=== PATIENT | male | born 1980 | race Two or more races ===

== ENCOUNTER 2018-02-17 16:56 | Inpatient (IN) | payer MEDICAID ==
[~2018-02-17] VITALS: Ht 172.7 cm; Wt 86.2 kg
[2018-02-17 16:59] VITALS: BP 132/86
[2018-02-17] MEDS ORDERED: NS IVPB ONE (17:45)
[2018-02-17] MEDS ORDERED: Isovue-300 100ml vial INJ PRN (17:45)
[2018-02-17] MEDS ORDERED: VANCOMYCIN IVPB ONE (17:45)
--- NOTE | 2018-02-17 17:49 | Emergency Room Report ---
History of Present Illness General Chief Complaint: Skin Rash/Abscess Present Illness HPI 37-year-old male patient presents the ER complaining of infected sebaceous cyst on the back of his neck. Patient states that he was at his primary care clinic earlier today and they sent him in here to be further evaluated and treated. Reports abscess has been on the back of his neck for the past 15 days, denies fever, chest pain, shortness of breath, vomiting. Reports up-to-date on vaccinations. Denies IV drug use. Reports has been draining at home. Reports has not taken any medication or antibiotics for relief of symptoms. Denies history of diabetes. Allergies: Coded Allergies: No Known Allergies (Unverified , 02/17/18) Patient History Past Medical History: see triage record Reviewed Nursing Documentation: PMH: Agreed; PSxH: Agreed Nursing Documentation-PMH Past Medical History: No History, Except For Review of Systems All Other Systems: negative except mentioned in HPI Physical Exam Vital Signs Date Time Temp Pulse Resp B/P (MAP) Pulse Ox O2 Delivery O2 Flow Rate FiO2 02/17/18 16:59 98.1 100 20 132/86 98 Room Air Sp02 EP Interpretation: reviewed, normal General Appearance: well appearing, no apparent distress, alert, GCS 15, non- toxic Head: normocephalic, atraumatic Eyes: bilateral eye normal inspection, bilateral eye PERRL ENT: hearing grossly normal, normal pharynx, no angioedema, normal voice, uvula midline, moist mucus membranes Neck: full range of motion Respiratory: lungs clear, normal breath sounds, no rhonchi, no respiratory distress, no accessory muscle use, no wheezing, speaking full sentences Cardiovascular #1: regular rate, rhythm, no edema Musculoskeletal: back normal, digits/nails normal, gait/station normal, normal range of motion, non-tender Neurologic: alert, oriented x3, responsive, motor strength/tone normal, sensory intact Psychiatric: mood/affect normal Skin: other - Posterior neck: Multilobulated indurated abscess noted, open and draining into different sites, erythematous, no surrounding erythema or edema Medical Decision Making PA Attestation Dr. Shelby is my supervising Physician whom patient management has been discussed with. Diagnostic Impression: Primary Impression: Cellulitis ER Course Pt. presents to the ED c/o infected "sebaceous cyst on the back of neck." Ddx considered but are not limited to rash, cellulitis, abscess, sebaceous cyst , carbuncle, folliculitis. Does not require imaging at this time. Vital signs: are WNL, pt. is afebrile ER COURSE: Spoke with patient's physician Dr. iDna Mendoza the phone regarding patient , discussed need for further imaging to evaluate depth of infection. Large possibly multilobulated abscess on the back of the patient's neck, indurated, currently with 2 sites open where likely drained , no active draining occurring, will order CT neck with contrast to evaluate further for depth. Discussed patient care with Dr. Shelby, will order 2 g of vancomycin to cover for infection. CBC shows WBC elevated above 18 CMP unremarkable normal kidney function CT neck with contrast shows inflammatory changes in the occipital region posterior neck without evidence of well-defined fluid collection. Patient to be admitted for cellulitis with elevated WBC. Consult with general surgeon Dr. Irby who was nice enough to consult on this case. Informed Dr. Shelby of patient, patient to be admitted to Dr. Burnett for cellulitis. - Please note that this Emergency Department Report was dictated using [employer] associate technology software, occasionally this can lead to erroneous entry secondary to interpretation by the dictation equipment. CT/MRI/US Diagnostic Results CT/MRI/US Diagnostic Results : Imaging Test Ordered: CT neck with contrast Impression IMPRESSION: Inflammatory changes in the suboccipital region posterior neck without evidence of well-defined fluid collection. Last Vital Signs Date Time Temp Pulse Resp B/P (MAP) Pulse Ox O2 Delivery O2 Flow Rate FiO2 02/17/18 16:59 98.1 20 132/86 98 Room Air 02/17/18 16:59 100 Disposition: ADMITTED INPATIENT Condition: Serious Dipak Lucas Feb 17, 2018 17:49
[2018-02-17 18:25] LABS: MEAN CORPUSCULAR VOLUME 85 FL (80-99); PLATELET COUNT 340 K/UL (150-450); RED BLOOD COUNT 5.15 M/UL (4.70-6.10); RED CELL DISTRIBUTION WIDTH 11.3 % (11.6-14.8); WHITE BLOOD COUNT 18.7 K/UL (4.8-10.8)
[2018-02-17 18:34] LABS: ANION GAP 11 mmol/L (5-15); BLOOD UREA NITROGEN 14 mg/dL (7-18); CALCIUM 9.7 MG/DL (8.5-10.1); CARBON DIOXIDE 24 MMOL/L (21-32); CHLORIDE 102 MMOL/L (98-107); CREATININE 0.9 MG/DL (0.55-1.30); POTASSIUM 3.9 MMOL/L (3.5-5.1); SODIUM 137 MMOL/L (136-145)
[2018-02-17 18:39] LABS: ALANINE AMINOTRANSFERASE 26 U/L (12-78); ALBUMIN 3.7 G/DL (3.4-5.0); ALBUMIN/GLOBULIN RATIO 0.8 (1.0-2.7); ALKALINE PHOSPHATASE 121 U/L (46-116); ASPARTATE AMINO TRANSFERASE 17 U/L (15-37); BILIRUBIN,TOTAL 0.2 MG/DL (0.2-1.0)
[2018-02-17 22:15] VITALS: BP 128/84
[2018-02-18] VITALS: BP 117/80
[2018-02-18] MEDS: Cefepime HCl 1 GM in D5W 55 ML IVPB SCH ×3 (00:50→21:00)
[2018-02-18] MEDS: Vancomycin 750mg/NS 250ml IVPB SCH ×3 (02:55→18:39)
[2018-02-18 04:00] VITALS: BP 120/78
[2018-02-18 07:03] LABS: BASOPHILS % (AUTO) 0.6 % (0.0-2.0); EOSINOPHILS % (AUTO) 0.9 % (0.0-3.0); HEMATOCRIT 42.9 % (42.0-52.0); HEMOGLOBIN 14.7 G/DL (14.2-18.0); LYMPHOCYTES % (AUTO) 17.3 % (20.0-45.0); MEAN CORPUSCULAR VOLUME 85 FL (80-99); MONOCYTES % (AUTO) 4.7 % (1.0-10.0); NEUTROPHILS % (AUTO) 76.5 % (45.0-75.0); PLATELET COUNT 324 K/UL (150-450); RED BLOOD COUNT 5.04 M/UL (4.70-6.10); RED CELL DISTRIBUTION WIDTH 11.2 % (11.6-14.8); WHITE BLOOD COUNT 15.7 K/UL (4.8-10.8)
[2018-02-18 07:46] LABS: ALANINE AMINOTRANSFERASE 26 U/L (12-78); ALBUMIN 3.2 G/DL (3.4-5.0); ALBUMIN/GLOBULIN RATIO 0.7 (1.0-2.7); ALKALINE PHOSPHATASE 106 U/L (46-116); ANION GAP 9 mmol/L (5-15); ASPARTATE AMINO TRANSFERASE 13 U/L (15-37); BILIRUBIN,TOTAL 0.4 MG/DL (0.2-1.0); BLOOD UREA NITROGEN 9 mg/dL (7-18); CALCIUM 8.9 MG/DL (8.5-10.1); CARBON DIOXIDE 26 MMOL/L (21-32); CHLORIDE 103 MMOL/L (98-107); CREATININE 0.9 MG/DL (0.55-1.30); SODIUM 138 MMOL/L (136-145)
[2018-02-18 08:00] VITALS: BP 123/81
--- NOTE | 2018-02-18 09:28 | Diagnostic Imaging Report ---
Indication: Infected sebaceous cyst on back of neck Technique: IV administration nonionic contrast. Spiral acquisitions obtained through the neck. Multiplanar reconstructions were generated. Total dose length product 475.57 mGycm. CTDIvol(s) 18.36 mGy. Dose reduction achieved using automated exposure control Comparison: none Findings: Motion artifact somewhat degrades images. There is thickening of the skin and infiltration of the subcutaneous fat in the midline of the mid to upper posterior neck region. There is a small skin defect to the right of midline. No focal rim-enhancing fluid collections to suggest abscess are evident. The nasopharynx, oropharynx, hypopharynx, larynx, trachea are all unremarkable. The thyroid is unremarkable. No cervical mass or adenopathy. The salivary glands are unremarkable. The included lung apices are clear. The sinuses are clear. The dentition is intact. The bones are unremarkable. Impression: Thickening of the skin and subcutaneous fat of the upper neck midline. Most likely cellulitis, given stated clinical history. No well-defined fluid collection to suggest abscess No other acute or significant abnormality This agrees with the preliminary interpretation provided overnight by [facility] teleradiology service. The CT scanner at [facility] is accredited by the [employer] and the scans are performed using protocols designed to limit radiation exposure to as low as reasonably achievable to attain images of sufficient resolution adequate for diagnostic evaluation.
[2018-02-18] MEDS: Heparin 5000 units/ml inj SUBQ SCH ×2 (10:21→20:59)
[2018-02-18 12:00] VITALS: BP 127/65
--- NOTE | 2018-02-18 12:32 | Consultation ---
History of Present Illness General Date patient seen: Feb 17, 2018 Chief Complaint: Skin Rash/Abscess Reason for Consultation: neck abscess Present Illness HPI 37 year old otherwise healthy male presented to ED with complaints of worsening neck pain. States that two weeks ago had a small pimple which as since progressed. now is too uncomfortable and came to ED for evaluation. noted some purulent drainage. states became much larger over past few days. surgery called to evaluate given size and location. patient initially seen in ED and given findings and recommendations was admitted for IV abx. this note is a late entry for visit in ED last night with anticipation of admission Allergies: Coded Allergies: No Known Allergies (Unverified , 02/17/18) Patient History History Provided By: Patient, Medical Record, PMD Healthcare decision maker Resuscitation status Full Code Advanced Directive on File Past Medical/Surgical History Past Medical/Surgical History: (1) Cellulitis Review of Systems All Other Systems: negative except mentioned in HPI Physical Exam General Appearance: no apparent distress Lines, tubes and drains: peripheral HEENT: mucous membranes moist Neck: other - large 5cm x 4cm indurated cellulitis in posterior neck with purulent drainage midline from opening. abrasion noted right lateral. tender, warm. no fluctuance. Respiratory/Chest: normal breath sounds, no respiratory distress Cardiovascular/Chest: normal rate, regular rhythm Abdomen: soft, no organomegaly, no mass Extremities: normal inspection, no calf tenderness Skin Exam: warm/dry Neurologic: alert, oriented x 3 Last 24 Hour Vital Signs Date Time Temp Pulse Resp B/P (MAP) Pulse Ox O2 Delivery O2 Flow Rate FiO2 02/18/18 12:00 98.2 75 21 127/65 (85) 99 02/18/18 09:00 Room Air 02/18/18 08:00 97.5 87 20 123/81 (95) 100 02/18/18 04:00 98.1 78 17 120/78 (92) 100 02/18/18 00:00 98.2 91 18 117/80 (92) 99 02/17/18 22:51 Room Air 02/17/18 22:15 98.3 74 18 128/84 98 Room Air 02/17/18 22:15 98.3 74 18 128/84 98 Room Air 02/17/18 16:59 98.1 20 132/86 98 Room Air 02/17/18 16:59 98.1 100 20 132/86 98 Room Air Intake and Output 02/17/18 02/18/18 19:00 07:00 Intake Total 0 ml 640 ml Balance 0 ml 640 ml Intake Oral 0 ml 240 ml IV Total 400 ml # Voids 2 Laboratory Tests Test 02/17/18 17:46 02/18/18 05:55 White Blood Count 18.7 K/UL (4.8-10.8) H 15.7 K/UL (4.8-10.8) H Red Blood Count 5.15 M/UL (4.70-6.10) 5.04 M/UL (4.70-6.10) Hemoglobin 15.0 G/DL (14.2-18.0) 14.7 G/DL (14.2-18.0) Hematocrit 44.0 % (42.0-52.0) 42.9 % (42.0-52.0) Mean Corpuscular Volume 85 FL (80-99) 85 FL (80-99) Mean Corpuscular Hemoglobin 29.2 PG (27.0-31.0) 29.2 PG (27.0-31.0) Mean Corpuscular Hemoglobin Concent 34.2 G/DL (32.0-36.0) 34.3 G/DL (32.0-36.0) Red Cell Distribution Width 11.3 % (11.6-14.8) L 11.2 % (11.6-14.8) L Platelet Count 340 K/UL (150-450) 324 K/UL (150-450) Mean Platelet Volume 7.2 FL (6.5-10.1) 6.9 FL (6.5-10.1) Neutrophils (%) (Auto) % (45.0-75.0) 76.5 % (45.0-75.0) H Lymphocytes (%) (Auto) % (20.0-45.0) 17.3 % (20.0-45.0) L Monocytes (%) (Auto) % (1.0-10.0) 4.7 % (1.0-10.0) Eosinophils (%) (Auto) % (0.0-3.0) 0.9 % (0.0-3.0) Basophils (%) (Auto) % (0.0-2.0) 0.6 % (0.0-2.0) Differential Total Cells Counted 100 Neutrophils % (Manual) 73 % (45-75) Lymphocytes % (Manual) 25 % (20-45) Monocytes % (Manual) 1 % (1-10) Eosinophils % (Manual) 1 % (0-3) Basophils % (Manual) 0 % (0-2) Band Neutrophils 0 % (0-8) Platelet Estimate Adequate Platelet Morphology Normal Red Blood Cell Morphology Normal Sodium Level 137 MMOL/L (136-145) 138 MMOL/L (136-145) Potassium Level 3.9 MMOL/L (3.5-5.1) 4.0 MMOL/L (3.5-5.1) Chloride Level 102 MMOL/L (98-107) 103 MMOL/L (98-107) Carbon Dioxide Level 24 MMOL/L (21-32) 26 MMOL/L (21-32) Anion Gap 11 mmol/L (5-15) 9 mmol/L (5-15) Blood Urea Nitrogen 14 mg/dL (7-18) 9 mg/dL (7-18) Creatinine 0.9 MG/DL (0.55-1.30) 0.9 MG/DL (0.55-1.30) Estimat Glomerular Filtration Rate > 60 mL/min (>60) > 60 mL/min (>60) Glucose Level 96 MG/DL (74-106) 95 MG/DL (74-106) Calcium Level 9.7 MG/DL (8.5-10.1) 8.9 MG/DL (8.5-10.1) Total Bilirubin 0.2 MG/DL (0.2-1.0) 0.4 MG/DL (0.2-1.0) Aspartate Amino Transf (AST/SGOT) 17 U/L (15-37) 13 U/L (15-37) L Alanine Aminotransferase (ALT/SGPT) 26 U/L (12-78) 26 U/L (12-78) Alkaline Phosphatase 121 U/L (46-116) H 106 U/L (46-116) Total Protein 8.6 G/DL (6.4-8.2) H 7.7 G/DL (6.4-8.2) Albumin 3.7 G/DL (3.4-5.0) 3.2 G/DL (3.4-5.0) L Globulin 4.9 g/dL 4.5 g/dL Albumin/Globulin Ratio 0.8 (1.0-2.7) L 0.7 (1.0-2.7) L Hemoglobin A1c 5.5 % (4.3-6.0) Thyroid Stimulating Hormone (TSH) 1.401 uiU/mL (0.358-3.740) Height (Feet): 5 Height (Inches): 8.00 Weight (Pounds): 190 Medications Current Medications Medications (Trade) Dose Ordered Sig/Odalis Route PRN Reason Start Time Stop Time Status Last Admin Dose Admin Cefepime HCl 1 gm/ Dextrose 55 ml @ 110 mls/hr EVERY 12 HOURS IVPB 02/17/18 23:45 02/24/18 23:44 02/18/18 10:18 Heparin Sodium (Porcine) (Heparin 5000 units/ml) 5,000 units EVERY 12 HOURS SUBQ 02/18/18 09:00 03/20/18 08:59 02/18/18 10:21 Iopamidol (Isovue-300 100ml) 100 ml NOW PRN INJ Radiology Procedure 02/17/18 17:45 02/19/18 17:33 Sodium Chloride 1,000 ml @ 100 mls/hr Q10H IV 02/17/18 23:45 03/19/18 23:44 02/18/18 10:19 Vancomycin HCl (Vanco rx to dose) 1 ea DAILY PRN MISC Per rx protocol 02/17/18 23:45 03/19/18 23:44 Vancomycin/Sodium Chloride 250 ml @ 166.667 mls/hr Q8H IVPB 02/18/18 02:00 02/23/18 01:59 02/18/18 10:48 Assessment/Plan Problem List: (1) Cellulitis Assessment & Plan: 37M posterior neck cellulitis / resolving abscess mainly only cellulitis with induration now. only minimal drainage with deep palpation CT reviewed and no drainable abscess noted. admitted for IV abx and care thank you for this consultation. will follow with recs. ICD Codes: L03.90 - Cellulitis, unspecified SNOMED: [id number] Qualifiers: Qualified Codes: L03.221 - Cellulitis of neck Status: stable Benyamini,Nemesio Feb 18, 2018 12:32
--- NOTE | 2018-02-18 12:34 | General Surgery Progress Note ---
General Surgery-Progress Note Subjective Symptoms: improved Additional Comments noted swelling improved. no n/v/f/c. labs improved. still with some drainage Objective Last 24 Hour Vital Signs Date Time Temp Pulse Resp B/P (MAP) Pulse Ox O2 Delivery O2 Flow Rate FiO2 02/18/18 12:00 98.2 75 21 127/65 (85) 99 02/18/18 09:00 Room Air 02/18/18 08:00 97.5 87 20 123/81 (95) 100 02/18/18 04:00 98.1 78 17 120/78 (92) 100 02/18/18 00:00 98.2 91 18 117/80 (92) 99 02/17/18 22:51 Room Air 02/17/18 22:15 98.3 74 18 128/84 98 Room Air 02/17/18 22:15 98.3 74 18 128/84 98 Room Air 02/17/18 16:59 98.1 20 132/86 98 Room Air 02/17/18 16:59 98.1 100 20 132/86 98 Room Air I&O Intake and Output 02/17/18 02/18/18 19:00 07:00 Intake Total 0 ml 640 ml Balance 0 ml 640 ml Intake Oral 0 ml 240 ml IV Total 400 ml # Voids 2 Dressing: saturated Wound: other Drains: none Cardiovascular: RSR Respiratory: clear Abdomen: soft, flat, non-tender, present bowel sounds Extremities: no edema, no tenderness, no cyanosis Laboratory Tests Test 02/17/18 17:46 02/18/18 05:55 White Blood Count 18.7 K/UL (4.8-10.8) H 15.7 K/UL (4.8-10.8) H Red Blood Count 5.15 M/UL (4.70-6.10) 5.04 M/UL (4.70-6.10) Hemoglobin 15.0 G/DL (14.2-18.0) 14.7 G/DL (14.2-18.0) Hematocrit 44.0 % (42.0-52.0) 42.9 % (42.0-52.0) Mean Corpuscular Volume 85 FL (80-99) 85 FL (80-99) Mean Corpuscular Hemoglobin 29.2 PG (27.0-31.0) 29.2 PG (27.0-31.0) Mean Corpuscular Hemoglobin Concent 34.2 G/DL (32.0-36.0) 34.3 G/DL (32.0-36.0) Red Cell Distribution Width 11.3 % (11.6-14.8) L 11.2 % (11.6-14.8) L Platelet Count 340 K/UL (150-450) 324 K/UL (150-450) Mean Platelet Volume 7.2 FL (6.5-10.1) 6.9 FL (6.5-10.1) Neutrophils (%) (Auto) % (45.0-75.0) 76.5 % (45.0-75.0) H Lymphocytes (%) (Auto) % (20.0-45.0) 17.3 % (20.0-45.0) L Monocytes (%) (Auto) % (1.0-10.0) 4.7 % (1.0-10.0) Eosinophils (%) (Auto) % (0.0-3.0) 0.9 % (0.0-3.0) Basophils (%) (Auto) % (0.0-2.0) 0.6 % (0.0-2.0) Differential Total Cells Counted 100 Neutrophils % (Manual) 73 % (45-75) Lymphocytes % (Manual) 25 % (20-45) Monocytes % (Manual) 1 % (1-10) Eosinophils % (Manual) 1 % (0-3) Basophils % (Manual) 0 % (0-2) Band Neutrophils 0 % (0-8) Platelet Estimate Adequate Platelet Morphology Normal Red Blood Cell Morphology Normal Sodium Level 137 MMOL/L (136-145) 138 MMOL/L (136-145) Potassium Level 3.9 MMOL/L (3.5-5.1) 4.0 MMOL/L (3.5-5.1) Chloride Level 102 MMOL/L (98-107) 103 MMOL/L (98-107) Carbon Dioxide Level 24 MMOL/L (21-32) 26 MMOL/L (21-32) Anion Gap 11 mmol/L (5-15) 9 mmol/L (5-15) Blood Urea Nitrogen 14 mg/dL (7-18) 9 mg/dL (7-18) Creatinine 0.9 MG/DL (0.55-1.30) 0.9 MG/DL (0.55-1.30) Estimat Glomerular Filtration Rate > 60 mL/min (>60) > 60 mL/min (>60) Glucose Level 96 MG/DL (74-106) 95 MG/DL (74-106) Calcium Level 9.7 MG/DL (8.5-10.1) 8.9 MG/DL (8.5-10.1) Total Bilirubin 0.2 MG/DL (0.2-1.0) 0.4 MG/DL (0.2-1.0) Aspartate Amino Transf (AST/SGOT) 17 U/L (15-37) 13 U/L (15-37) L Alanine Aminotransferase (ALT/SGPT) 26 U/L (12-78) 26 U/L (12-78) Alkaline Phosphatase 121 U/L (46-116) H 106 U/L (46-116) Total Protein 8.6 G/DL (6.4-8.2) H 7.7 G/DL (6.4-8.2) Albumin 3.7 G/DL (3.4-5.0) 3.2 G/DL (3.4-5.0) L Globulin 4.9 g/dL 4.5 g/dL Albumin/Globulin Ratio 0.8 (1.0-2.7) L 0.7 (1.0-2.7) L Hemoglobin A1c 5.5 % (4.3-6.0) Thyroid Stimulating Hormone (TSH) 1.401 uiU/mL (0.358-3.740) Plan Problems: (1) Cellulitis Assessment & Plan: 37M posterior neck cellulitis / resolving abscess mainly only cellulitis with induration now. only minimal drainage with deep palpation CT reviewed and no drainable abscess noted. admitted for IV abx and care wound improved today. opening in apex of induration / cellulitis with minimal drainage. leukocytosis trending down okay for diet spontaneously drainage from good area. no need further I&D at this time based on clinical and radiological imaging cont IV Abx once leukocytosis resolved will plan to d/c on oral abx for duration of course will monitor wound for I&D if phlegmon develops into abscess thank you for this consultation. will follow with recs. Nemesio Irby Feb 18, 2018 12:34
[2018-02-18] MEDS ORDERED: Norco 5mg/325mg tab ORAL PRN (12:45)
[2018-02-18 16:00] VITALS: BP 132/87
[2018-02-18 20:10] VITALS: BP 122/72
[2018-02-19 00:08] VITALS: BP 125/68
[2018-02-19] MEDS: Vancomycin 750mg/NS 250ml IVPB SCH ×4 (02:02→17:27)
--- NOTE | 2018-02-19 02:15 | History and Physical Report ---
DATE OF ADMISSION: 02/17/2018 REASON FOR ADMISSION: Cellulitis of neck with possible abscess. HISTORY OF PRESENT ILLNESS: This is a 37-year-old male. He has a sebaceous cyst on the back of his neck that has been irritating him and growing in size. He was seen by his primary care physician and referred to the hospital for possible drainage procedure. He notes that the lump on his neck has been there for approximately two weeks. The patient has no history of diabetes or IV drug use. He has not been on any antibiotics. ALLERGIES: None. PAST MEDICAL HISTORY: Otherwise unremarkable. MEDICATIONS: None. SOCIAL HISTORY: No alcohol or substance abuse. No smoking. REVIEW OF SYSTEMS: Otherwise unremarkable. PHYSICAL EXAMINATION: VITAL SIGNS: Afebrile, blood pressure 132/86, pulse 100, and respiratory rate 20. HEENT: Conjunctivae pink. Oropharynx clear. NECK: Supple. LUNGS: Clear. CARDIAC: Regular. Normal S1 and S2. No murmur. ABDOMEN: Soft and nontender. EXTREMITIES: No edema. SKIN: Reveals posterior neck with indurated abscess versus phlegmon, multilobulated, open and draining with erythema and edema surrounding. LABORATORY DATA: Labs noted. IMPRESSION: 1. Cellulitis of neck with draining phlegmon versus abscess, rule out deeper infection. 2. Leukocytosis noted. PLAN: 1. IV antibiotics following cultures. 2. Surgical evaluation for drainage. 3. CT scan to assess for deeper tissue collection. Gokul Boyd M.D. DR: KASSIE JOB#: [id number] CC:
[2018-02-19 03:54] VITALS: BP 122/79
[2018-02-19 05:23] LABS: BASOPHILS % (AUTO) 0.8 % (0.0-2.0); EOSINOPHILS % (AUTO) 1.3 % (0.0-3.0); HEMATOCRIT 43.8 % (42.0-52.0); HEMOGLOBIN 14.4 G/DL (14.2-18.0); LYMPHOCYTES % (AUTO) 25.1 % (20.0-45.0); MEAN CORPUSCULAR VOLUME 89 FL (80-99); MONOCYTES % (AUTO) 4.5 % (1.0-10.0); NEUTROPHILS % (AUTO) 68.3 % (45.0-75.0); PLATELET COUNT 329 K/UL (150-450); RED CELL DISTRIBUTION WIDTH 11.4 % (11.6-14.8); WHITE BLOOD COUNT 14.7 K/UL (4.8-10.8)
[2018-02-19 05:36] LABS: ANION GAP 7 mmol/L (5-15); BLOOD UREA NITROGEN 10 mg/dL (7-18); CARBON DIOXIDE 26 MMOL/L (21-32); CHLORIDE 104 MMOL/L (98-107); POTASSIUM 4.2 MMOL/L (3.5-5.1); SODIUM 137 MMOL/L (136-145)
[2018-02-19 08:00] VITALS: BP 127/73
[2018-02-19] MEDS: Cefepime HCl 1 GM in D5W 55 ML IVPB SCH ×2 (08:31→20:43)
[2018-02-19] MEDS: Heparin 5000 units/ml inj SUBQ SCH ×2 (08:31→20:41)
[2018-02-19 12:00] VITALS: BP 112/73
[2018-02-19 16:00] VITALS: BP 123/68
[2018-02-19 19:52] VITALS: BP 121/81
--- NOTE | 2018-02-19 22:42 | General Surgery Progress Note ---
General Surgery-Progress Note Subjective Symptoms: improved, tolerating diet, passing flatus Additional Comments wound with less cellulitis today. still draining Objective Last 24 Hour Vital Signs Date Time Temp Pulse Resp B/P (MAP) Pulse Ox O2 Delivery O2 Flow Rate FiO2 02/19/18 19:52 98.4 68 17 121/81 (94) 98 02/19/18 16:00 98.4 85 20 123/68 (86) 99 02/19/18 12:00 98.2 71 20 112/73 (86) 98 02/19/18 09:00 Room Air 02/19/18 08:00 98.6 85 20 127/73 (91) 99 02/19/18 03:54 98.6 82 17 122/79 (93) 97 02/19/18 00:08 98.9 80 18 125/68 (87) 98 I&O Intake and Output 02/18/18 02/19/18 18:59 06:59 Intake Total 2040 ml 1318.334 ml Balance 2040 ml 1318.334 ml Intake Oral 740 ml 480 ml IV Total 1300 ml 838.334 ml # Voids 4 4 Dressing: saturated Wound: clean, other Drains: none Cardiovascular: RSR Respiratory: clear Abdomen: soft, flat, non-tender, present bowel sounds Extremities: no edema, no tenderness, no cyanosis Laboratory Tests Test 02/19/18 04:44 White Blood Count 14.7 K/UL (4.8-10.8) H Red Blood Count 4.90 M/UL (4.70-6.10) Hemoglobin 14.4 G/DL (14.2-18.0) Hematocrit 43.8 % (42.0-52.0) Mean Corpuscular Volume 89 FL (80-99) Mean Corpuscular Hemoglobin 29.4 PG (27.0-31.0) Mean Corpuscular Hemoglobin Concent 32.9 G/DL (32.0-36.0) Red Cell Distribution Width 11.4 % (11.6-14.8) L Platelet Count 329 K/UL (150-450) Mean Platelet Volume 6.8 FL (6.5-10.1) Neutrophils (%) (Auto) 68.3 % (45.0-75.0) Lymphocytes (%) (Auto) 25.1 % (20.0-45.0) Monocytes (%) (Auto) 4.5 % (1.0-10.0) Eosinophils (%) (Auto) 1.3 % (0.0-3.0) Basophils (%) (Auto) 0.8 % (0.0-2.0) Sodium Level 137 MMOL/L (136-145) Potassium Level 4.2 MMOL/L (3.5-5.1) Chloride Level 104 MMOL/L (98-107) Carbon Dioxide Level 26 MMOL/L (21-32) Anion Gap 7 mmol/L (5-15) Blood Urea Nitrogen 10 mg/dL (7-18) Creatinine 1.0 MG/DL (0.55-1.30) Estimat Glomerular Filtration Rate > 60 mL/min (>60) Glucose Level 115 MG/DL (74-106) H Calcium Level 9.0 MG/DL (8.5-10.1) Plan Problems: (1) Cellulitis Assessment & Plan: 37M posterior neck cellulitis / resolving abscess mainly only cellulitis with induration now. only minimal drainage with deep palpation CT reviewed and no drainable abscess noted. admitted for IV abx and care wound improved today. opening in apex of induration / cellulitis with minimal drainage. leukocytosis trending down okay for diet spontaneously drainage from good area. no need further I&D at this time based on clinical and radiological imaging cont IV Abx once leukocytosis resolved will plan to d/c on oral abx for duration of course will monitor wound for I&D if phlegmon develops into abscess thank you for this consultation. will follow with recs. Nemesio Irby Feb 19, 2018 22:42
[2018-02-20 00:34] VITALS: BP 125/74
--- NOTE | 2018-02-20 01:45 | Progress Note ---
DATE: 02/19/2018 SUBJECTIVE: The patient is seen with family at bedside. Drainage from the neck is still present, but decreased. OBJECTIVE: VITAL SIGNS: He is afebrile. Blood pressure 127/73, pulse 85, and respiratory rate 20. LUNGS: Clear. CARDIAC: Regular with no murmur. ABDOMEN: Soft. EXTREMITIES: No edema. SKIN: Neck posterior abscess site is open with minimal drainage and decreased erythema. LABORATORY DATA: Notable for white count decreased from admission of 18.7 to 14.7 today with chemistry panel within normal limits. IMPRESSION: 1. Sebaceous cyst with abscess of neck status post spontaneous drainage, cellulitis. 2. Mild protein-calorie malnutrition. 3. Leukocytosis PLAN: 1. Wound care. 2. IV antimicrobials. 3. Monitor white blood count. 4. Oral antibiotics soon. Gokul Boyd M.D. DR: JONY JOB#: [id number] CC:
[2018-02-20] MEDS: Vancomycin 750mg/NS 250ml IVPB SCH (02:50)
[2018-02-20 04:00] VITALS: BP 116/72
[2018-02-20 08:00] VITALS: BP 119/75
[2018-02-20 08:09] LABS: BASOPHILS % (AUTO) 1.3 % (0.0-2.0); HEMATOCRIT 42.6 % (42.0-52.0); HEMOGLOBIN 14.2 G/DL (14.2-18.0); MEAN CORPUSCULAR VOLUME 88 FL (80-99); MONOCYTES % (AUTO) 4.9 % (1.0-10.0); NEUTROPHILS % (AUTO) 59.8 % (45.0-75.0); PLATELET COUNT 335 K/UL (150-450); RED BLOOD COUNT 4.82 M/UL (4.70-6.10); RED CELL DISTRIBUTION WIDTH 11.4 % (11.6-14.8); WHITE BLOOD COUNT 8.4 K/UL (4.8-10.8)
[2018-02-20] MEDS: Cefepime HCl 1 GM in D5W 55 ML IVPB SCH (08:44)
[2018-02-20] MEDS: Heparin 5000 units/ml inj SUBQ SCH (08:46)
[2018-02-20] MEDS ORDERED: Bactrim-DS 1 tab ORAL SCH ×2 (09:00→21:00)
[2018-02-20] MEDS ORDERED: Vancomycin 750mg/NS 250ml 250 ML IVPB SCH (10:00)
[2018-02-20 12:00] VITALS: BP 149/83
[2018-02-20] MEDS ORDERED: Tubing IV Secondary IV ONE (15:36)
--- NOTE | 2018-02-27 06:42 | Discharge Summary ---
Discharge Summary Discharge Summary _ DATE OF ADMISSION: February 17, 2018 DATE OF DISCHARGE: February 20, 2018 DISCHARGED BY: Dr. Boyd CONSULTANTS: Dr. Nemesio Irby BRIEF HOSPITAL COURSE: Patient is a 37-year-old male. He has a sebaceous cyst on the back of his neck that has been irritating him and has been growing in size. He was seen by his primary care physician and was referred to the hospital for possible drainage. He noted that the lump on the neck has been there for approximately 2 weeks. Patient has no history of diabetes or IV drug abuse. He has not been on any antibiotics. On evaluation at the emergency department, he was noted to have a large possibly multiloculated abscess on the back of the neck, and generated, with 2 sites open. Blood work showed leukocytosis, WBC elevated 18. Hemoglobin and hematocrit were stable. CT of the neck showed thickening of skin and subcutaneous fat of the upper neck midline. Most likely cellulitis, no well- defined fluid collection to suggest abscess. He was then admitted for evaluation of cellulitis of the neck with draining phlegmon versus abscess, rule out deep infection. He was started empirically on IV vancomycin and cefepime.. Surgical consultation was obtained. CT results were reviewed. There was no drainable abscess noted. Patient had spontaneous drainage coming from the area. No need for further I&D based on clinical and radiological imaging. He was recommended to continue IV antibiotic. He was given wound care. Antibiotic was transitioned to p.o. Bactrim DS. He was educated on wound care and wound dressings. He was then discharged home. FINAL DIAGNOSES: Sebaceous cyst with abscess of neck, status post spontaneous drainage, cellulitis Mild protein calorie malnutrition Leukocytosis DISPOSITION: Patient was discharged home. DISCHARGE MEDICATIONS: Patient was given prescriptions to continue p.o. antibiotics. DISCHARGE INSTRUCTIONS: Follow-up in a week. I have been assigned to dictate discharge summary on this account, and I was not involved in the patient's management. Frida Avila NP Feb 27, 2018 06:42
== END 2018-02-20 14:00 | disposition home or self-care (01) | DRG 383 ==
LOC: EMR 18:18 → 3E 19:07 → EDBEDREQ 21:02
DX: L02.11 Cutaneous abscess of neck (principal); E44.1 Mild protein-calorie malnutrition; L72.3 Sebaceous cyst; L03.221 Cellulitis of neck
CPT/HCPCS: 36415; 70491; 80048; 80053; 80202; 83036; 84443; 85007; 85025; 96361; 96365; 99285

== ENCOUNTER 2018-04-22 15:03 | Emergency (ER) | payer MEDICAID ==
[~2018-04-22] VITALS: Ht 172.7 cm; Wt 86.2 kg
[2018-04-22 15:23] VITALS: BP 121/86
--- NOTE | 2018-04-22 15:23 | NUR ---
ED Nurse Note: TO ER WITH 9/10 PAIN TO R WRIST S/P MECH FALL ON CONCRETE. PRESENTING WITH SWOLLEN R WRIST.
[2018-04-22] MEDS ORDERED: Norco 5mg/325mg tab ORAL ONE (15:45)
[2018-04-22] MEDS ORDERED: Bupivacaine 0.5% Inj 30 ml vial INJ ONE (15:45)
--- NOTE | 2018-04-22 16:13 | Emergency Room Report ---
History of Present Illness General Chief Complaint: Upper Extremity Injury Source: Patient Present Illness HPI 37-year-old male patient presents the ER complaining of right wrist pain status post fall from skateboard earlier today. Reports that he was skateboarding when he accidentally fell off his skateboard. Patient reports FOOSH injury. Reports he is right-hand dominant. Reports he did not hit his head or lose consciousness. Reports he was not wearing a helmet. Denies pain in other extremities. States is not taking medication for relief of symptoms. Denies other aggravating or relieving factors. Patient arm currently resting in a sling, deformity noted. Allergies: Coded Allergies: No Known Allergies (Unverified , 02/17/18) Patient History Past Medical History: see triage record Reviewed Nursing Documentation: PMH: Agreed; PSxH: Agreed Nursing Documentation-PMH Past Medical History: No Stated History Hx Cardiac Problems: No Hx Cancer: No Hx Gastrointestinal Problems: No Hx Neurological Problems: No Review of Systems All Other Systems: negative except mentioned in HPI Physical Exam Vital Signs Date Time Temp Pulse Resp B/P (MAP) Pulse Ox O2 Delivery O2 Flow Rate FiO2 04/22/18 15:13 99.0 89 19 121/86 98 Room Air Sp02 EP Interpretation: reviewed, normal General Appearance: well appearing, no apparent distress, alert, GCS 15, non- toxic Head: normocephalic, atraumatic Eyes: bilateral eye normal inspection, bilateral eye PERRL ENT: hearing grossly normal, normal pharynx, no angioedema, normal voice, uvula midline, moist mucus membranes Neck: full range of motion Respiratory: lungs clear, normal breath sounds, no rhonchi, no respiratory distress, no accessory muscle use, no wheezing, speaking full sentences Cardiovascular #1: regular rate, rhythm, no edema Cardiovascular #2: 2+ radial (R), 2+ radial (L) Musculoskeletal: back normal, digits/nails normal, gait/station normal, normal range of motion, swelling, other - NVI, cap refill less than 2 seconds, dinner fork deformity, no snuffbox tenderness, tender - Dorsum of right wrist Neurologic: alert, oriented x3, responsive, motor strength/tone normal, sensory intact Psychiatric: mood/affect normal Skin: no rash Medical Decision Making PA Attestation Dr. Sheehan is my supervising Physician whom patient management has been discussed with. Diagnostic Impression: Primary Impression: Distal radius fracture Additional Impression: Fracture of ulnar styloid ER Course Pt. presents to the ED c/o right wrist pain. Ddx considered but are not limited to fracture, sprain, strain, contusion, dislocation. No erythema, no warmth to touch, no fever, nontoxic appearing, low suspicion for septic joint. Soft compartments, no pulselessness, no pallor, no paresthesias, low suspicion for compartment syndrome at this time. Vital signs: are WNL, pt. is afebrile Ordered X-ray and pain medication. ER COURSE Provided with pain medication. An X-ray of the right wrist shows distal radius fracture per the preliminary reading. Discussed patient care with supervising physician Dr. Sheehan, patient seen and evaluated by him, x-ray reviewed by him, fracture unstable, but not benefit from reduction in the ER currently. Will splint and instructed to follow-up with senior quality methods specialist as outpatient, likely requiring surgical correction. VOlar splint was applied to the right wrist and was checked afterwards by me showing good alignment and support with distal neurovascular functioning intact. Patient instructed on RICE method: rest, ice, compression, elevation. Patient instructed on rest, ice and heat. Patient instructed to be NWB. Due to patient lack of insurance, advised to follow-up with [facility]. Provided with contact information for senior quality methods specialist Contact information for orthopedic urgent care provided, follow-up with urgent care if unable to followup with primary care provider and get referral to senior quality methods specialist. Followup with primary care provider. Discuss referral to ortho/pain management/ PT as needed. Discuss further imaging with MRI/CT as needed. ER precautions given. DISCHARGE: At this time pt. is stable for d/c to home. Patient is resting comfortably, in no acute distress, nontoxic appearing, talking without difficulty. Will provide printed patient care instructions, and any necessary prescriptions. Patient instructed to follow with primary care provider in 3 - 5 days and to request further follow-up as needed. Care plan and follow up instructions have been discussed with the patient prior to discharge. Take medications as directed. Patient questions asked and answered. Patient reports understanding and agreement to treatment plan. ER precautions given, patient instructed to return to ER immediately for any new or worsening of symptoms. - Please note that this Emergency Department Report was dictated using [employer] technology software, occasionally this can lead to erroneous entry secondary to interpretation by the dictation equipment. Other X-Ray Diagnostic Results Other X-Ray Diagnostic Results : X-Ray ordered: Right wrist # of Views/Limited Vs Complete: 3 View Indication: Pain EP Interpretation: Yes PA Xray: Interpretation reviewed, by supervising MD, and agrees with findings. Interpretation: no dislocation, no soft tissue swelling, other - Comminuted distal radius fracture and ulnar styloid fracture Impression: Other - Fracture PA Scribe Text Eros Lucas PA-C Last Vital Signs Date Time Temp Pulse Resp B/P (MAP) Pulse Ox O2 Delivery O2 Flow Rate FiO2 04/22/18 15:23 99.0 19 121/86 98 Room Air 04/22/18 15:13 89 Disposition: HOME, SELF-CARE Condition: Stable Scripts Ibuprofen* (MOTRIN*) 600 Mg Tablet 600 MG ORAL Q8H PRN for For Pain, #30 TAB 0 Refills Prov: Dipak Lucas 04/22/18 Hydrocodone Bit/Acetaminophen 5-325* (NORCO 5-325*) 1 Each Tablet 1 TAB ORAL Q6H PRN for For Pain, #10 TAB 0 Refills Prov: Dipak Lucas 04/22/18 Patient Instructions: Radial Fracture Additional Instructions: Patient instructed to follow up with primary care provider and discuss further referral to orthopedics/physical therapy/pain management as needed. If unable to followup with PCP, followup with orthopedic urgent care in 5-7 days , call to schedule appointment. Patient instructed on RICE method: rest, ice, compression, elevation. Patient instructed to NWB. Take medications as directed. Medication may cause drowsiness, do not take prior to drinking, driving, operating heavy machinery Patient questions asked and answered. ER precautions given, patient instructed to return to ER immediately for any new or worsening of symptoms. [facility] [address] [facility] [address] [facility], [id number] [email or web address] Dipak Lucas Apr 22, 2018 16:13
[2018-04-22] MEDS ORDERED: NORCO 5-325 TA1 EACH ORAL (17:41)
[2018-04-22] MEDS ORDERED: IBUPROFEN600 MG ORAL (17:41)
[2018-04-22 18:06] VITALS: BP 118/70
--- NOTE | 2018-04-22 18:06 | NUR ---
ED Nurse Note: Pt cleared by Health Care Provider for discharge. DC instructions/prescription was given and explained to the pt and verbalized understanding of teachings. All medical devices such as ID band removed. Pt is AAO x4, ambulatory and left with all personal belongings.
--- NOTE | 2018-04-23 08:38 | Diagnostic Imaging Report ---
Clinical Indication: Pain Technique: 3 views of the right wrist Comparison: None Findings: There is a comminuted fracture of the distal radius. This involves the articular surface, some anterior angulation and anterior displacement and override of the anterior fragments. There is also an associated ulnar styloid fracture. Impression: Positive for distal radial fracture
== END 2018-04-22 18:06 | disposition home or self-care (01) ==
LOC: EMR 15:41
DX: S52.501A Unspecified fracture of the lower end of right radius, initial encounter for closed fracture (principal); S52.611A Displaced fracture of right ulna styloid process, initial encounter for closed fracture; V00.131A Fall from skateboard, initial encounter; Y92.89 Other specified places as the place of occurrence of the external cause
CPT/HCPCS: 29125; 73110; 99283; J3490